=== PATIENT | male | born 2000 | race Caucasian/White ===

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

== ENCOUNTER → 2020-04-16 | Outpatient (CLI) | payer BC ==
--- NOTE | 2020-04-16 21:18 | CT ---
EXAMINATION TYPE: CT chest w con DATE OF EXAM: 04/16/2020 COMPARISON: Prior CT October 11, 2019. HISTORY: nodules CT DLP: 173.1 mGycm. Automated Exposure Control for Dose Reduction was Utilized. TECHNIQUE: CT scan of the thorax is performed following with IV Contrast, patient injected with 100 mL of Isovue 300. FINDINGS: LUNGS: Stable 5 to 6 mm groundglass nodule right middle lobe axial image 42 presumed benign in patien t of this age. No new greater than 4 mm pulmonary nodules or masses. There is no pleural effusion or pneumothorax seen bilaterally. Lungs remain clear. The tracheobronchial tree is patent. MEDIASTINUM: There are no new greater than 1 cm hilar or mediastinal lymph nodes. No cardiomegaly o r pericardial effusion is seen. OTHER: Patient has virtually no intra-abdominal fat. Underlying scoliotic curvature is redemonstrated . IMPRESSION: Stable 5 to 6 mm right middle lobe groundglass nodule presumed benign in patient of this age.
== END | disposition home or self-care (01) ==
LOC: RADCTMAIN 18:27
PROVIDERS: ATTEND Family Medicine
DX: R91.1 Solitary pulmonary nodule (principal)
CPT/HCPCS: 71260; Q9967